=== PATIENT | male | born 1960 | race Caucasian/White ===

== ENCOUNTER 2018-07-23 14:39 | Emergency (ER) | payer SELFPAY ==
[~2018-07-23] VITALS: Ht 180.3 cm; Wt 97.1 kg
[2018-07-23 14:51] VITALS: BP 149/79; PULSE 134; RESP 20; Ht 180.3 cm; Wt 97.1 kg
== END 2018-07-23 21:07 | disposition left against medical advice (07) ==
LOC: E/R 14:39
DX: Z53.21 Procedure and treatment not carried out due to patient leaving prior to being seen by health care provider (principal)